=== PATIENT | female | born 1950 | race Caucasian/White ===

== ENCOUNTER 2020-03-08 09:18 | Emergency (ER) | payer SELFPAY ==
[2020-03-08 09:29] VITALS: BP 113/75; PULSE 88; RESP 16; TEMP 36.9; O2SAT 98
--- NOTE | 2020-03-08 09:57 | ED.URI ---
HPI - URI/Sore Throat General Chief Complaint: Upper Respiratory Infection Stated Complaint: Possible sinus infection Time Seen by Provider: 03/08/20 09:44 Source: patient and RN notes reviewed Mode of arrival: ambulatory Limitations: no limitations History of Present Illness HPI Narrative: Patient presents today complaining of right ear pain, postnasal drip, rhinorrhea, sinus pressure for the last couple of months. Her copious postnasal drip is leading to some nausea and she believes, diarrhea. She is also experiencing some mild dizziness that started several days ago. She has been occasionally using a nasal spray and benadryl every 1-2 hours without relief. Patient does not have a PCP. Related Data Allergies Allergy/AdvReac Type Severity Reaction Status Date / Time No Known Allergies Allergy Unknown Verified 03/08/20 09:51 Review of Systems Review of Systems: Narrative: CONSTITUTIONAL: Denies body aches, fever, chills, or sweats. EYES: Denies visual changes, redness, or discharge. ENT: Denies congestion, sore throat.+ Rhinorrhea, postnasal drip, sinus pressure CARDIOVASCULAR: Denies chest pain, palpitations, or edema. RESPIRATORY: Denies cough or dyspnea. GASTROINTESTINAL: Denies abdominal pain, vomiting. + Nausea, diarrhea GENITOURINARY: Denies dysuria or hematuria. SKIN: Denies rash, itching, or wounds. MUSCULOSKELETAL: Denies back pain, joint pain, or myalgia. NEUROLOGIC: Denies headache, numbness, tingling, or weakness.+ Dizziness PSYCH: Denies depression or anxiety. [facility] Past Medical History Medical History (Updated 03/08/20 @ 10:07 by No Pritchard, [facility], ) Cerebral palsy History of breast cancer History of uterine cancer Social History Social History Gender identity (if verbalized by the patient): Female Comments At time of signature, I have reviewed and agree with nursing past medical, surgical, social and family history unless otherwise noted. Please see nursing chart for further information. There is no relevant family history pertinent to the presenting complaint Exam Narrative: Exam Narrative: GENERAL: Well-appearing, well-nourished, and in no acute distress. HEAD: Normocephalic, atraumatic. EYES: EOMI. No redness or drainage. Conjunctivae normal. ENT: Mucous membranes pink and moist. Nares congested. Tenderness to maxillary sinuses bilaterally.. + Rhinorrhea. TMs normal bilaterally. Throat normal. + Copious white postnasal drainage. Uvula midline. NECK: Normal AROM. Supple. No lymphadenopathy. CHEST: No respiratory distress. Clear to auscultation. HEART: Regular rate and rhythm. No murmur appreciated. Normal peripheral pulses. EXTREMITIES: Normal range of motion. No edema. SKIN: Warm, dry, no rash. Capillary refill normal. Normal skin turgor. NEURO: No focal deficits. Alert and oriented x3. Ambulates with walker. Obvious limp. PSYCH: Normal affect. No signs of depression or anxiety. Course Course Emergency Course: I believe patient's dizziness may be due to her overuse of Benadryl. This was discussed at length. Vital Signs Vital signs: Vital Signs Temperature 98.5 F 03/08/20 09:29 Pulse Rate 88 03/08/20 09:29 Respiratory Rate 16 03/08/20 09:29 Blood Pressure 113/75 03/08/20 09:29 Pulse Oximetry 98 03/08/20 09:29 Temperature 98.5 F 03/08/20 09:29 Pulse Rate 88 03/08/20 09:29 Respiratory Rate 16 03/08/20 09:29 Blood Pressure 113/75 03/08/20 09:29 Pulse Oximetry 98 03/08/20 09:29 Reviewed MDM - URI/Sore Throat Differential Diagnosis Differential diagnosis: Likely upper respiratory infection, otitis media, sinusitis, viral infection, pharyngitis and other (Seasonal allergies, allergic rhinitis) Critical Care Time Critical Care Time Critical Care Time: No Discharge Plan Discharge Clinical Impression: Sinusitis Qualifiers: Sinusitis location: maxillary Chronicity: acute Recurrence: not specified as recurrent Qualified Code(s)
== END 2020-03-08 10:10 | disposition home or self-care (01) ==
PROVIDERS: Emergency Provider Nurse Practitioner
DX: J01.00 Acute maxillary sinusitis, unspecified (principal); G80.9 Cerebral palsy, unspecified; Z85.3 Personal history of malignant neoplasm of breast; Z85.42 Personal history of malignant neoplasm of other parts of uterus
CPT/HCPCS: 99213; G0463

== ENCOUNTER 2024-03-06 07:08 | Day surgery (SDC) | payer MEDICARE, SELFPAY ==
[2024-02-18 09:00] VITALS: BMI 21.1
[2024-02-28 14:08] VITALS: BMI 20.8
[2024-03-06 08:11] VITALS: BP 101/79; PULSE 90; RESP 20; TEMP 37.1; O2SAT 100; BMI 20.8
[2024-03-06] MEDS: LACTATED RINGERS 1,000 ML 150 ML IV CONT (08:23)
--- NOTE | 2024-03-06 08:39 | P.HP_ITS ---
History of Present Illness History of Present Illness Consent: Risks, benefits, and alternatives have been discussed and questions answered. Patient agrees to proceed with procedure. Chief complaint: Neoplasm screening Narrative: Syl Solares is a 73 year old female referred from nurse practitioner , [place], for screening colonoscopy. Patient had previous colonoscopy many years ago. She states it was unremarkable. These records are not available for re view. Currently complains of vague abdominal pain. Her weight appetite bowel movements are reported to be normal. Family history noncontributory. Patient presents today for screening colonoscopy. Has a past medical history of cerebral palsy. She has been treated for breast cancer and uterine cancer. Review of Systems Review of Systems: All systems reviewed & are unremarkable except as noted in HPI and below PMFSH Past Medical History Medical History (Updated 03/06/24 @ 08:41 by Cedric Mejia MD) Cerebral palsy History of breast cancer History of uterine cancer Social History Social History Smoking status: Never smoker Alcohol intake: never Substance use type: does not use Living arrangements: alone Gender identity (if verbalized by the patient): Female Spiritual care concerns: No Meds Home Medications and Allergies Home Medications Medication Instructions Recorded Confirmed Type Super Beets 1 tablet PO DAILY 02/28/24 03/06/24 History ascorbic acid (vitamin C) 500 mg 500 mg PO DAILY 02/28/24 03/06/24 History tablet calcium 600 mg capsule 600 mg PO DAILY 02/28/24 03/06/24 History cetirizine 10 mg tablet 10 mg PO DAILY 02/28/24 03/06/24 History famotidine 40 mg tablet 40 mg PO DAILY 02/28/24 03/06/24 History mecobalamin (vitamin B12) 5,000 5,000 mcg PO DAILY 02/28/24 03/06/24 History mcg chewable tablet potassium chloride 20 mEq 20 meq PO DAILY 02/28/24 03/06/24 History tablet,extended release Allergies Allergy/AdvReac Type Severity Reaction Status Date / Time latex Allergy Redness of Verified 03/06/24 08:02 Skin Penicillins Allergy Rash Verified 03/06/24 08:02 Vital Signs Vital Signs - 24 hr 03/06/24 08:11 Temperature 98.8 F Pulse Rate 90 Respiratory Rate 20 Blood Pressure 101/79 Pulse Oximetry 100 Oxygen Delivery Room Air Exam Narrative: Physical exam reveals patient to be hard of hearing his hearing aids. HEENT exam unremarkable. Lungs are clear to auscultation and percussion. Heart is without murmur or extra sounds. Abdomen bowel sounds are present soft nontender with no organomegaly. Digital external rectal exam normal. Assessment and Plan Assessment and plan (1) Encounter for screening colonoscopy: Code(s): Z12.11 - Encounter for screening for malignant neoplasm of colon Status: Acute Assessment and Plan: Patient referred for screening colonoscopy. Further recommendations may be given after endoscopy.
--- NOTE | 2024-03-06 08:42 | WPDANESEPPF ---
Anes - Initial Pre Proc Eval Procedure: Operation Date: 03/06/24 09:30 Proposed Procedures p Screening Colonoscopy - Cedric Mejia MD Date/Time: 03/06/24 08:42 Surgeon: Cedric Mejia MD Pre Op Diagnosis: Neoplasm screening Patient Data Age: 73 Gender: F Height: 1.55 m Weight: 50 kg Last Vital Signs Temp 37.1 C 03/06/24 08:11 Pulse 90 03/06/24 08:11 Resp 20 03/06/24 08:11 BP 101/79 03/06/24 08:11 Pulse Ox 100 03/06/24 08:11 O2 Del Method Room Air 03/06/24 08:11 Allergies Allergy/AdvReac Type Severity Reaction Status Date / Time latex Allergy Redness of Verified 03/06/24 08:02 Skin Penicillins Allergy Rash Verified 03/06/24 08:02 Home Medications Medication Instructions Recorded Confirmed Type Super Beets 1 tablet PO DAILY 02/28/24 03/06/24 History ascorbic acid (vitamin C) 500 mg 500 mg PO DAILY 02/28/24 03/06/24 History tablet calcium 600 mg capsule 600 mg PO DAILY 02/28/24 03/06/24 History cetirizine 10 mg tablet 10 mg PO DAILY 02/28/24 03/06/24 History famotidine 40 mg tablet 40 mg PO DAILY 02/28/24 03/06/24 History mecobalamin (vitamin B12) 5,000 5,000 mcg PO DAILY 02/28/24 03/06/24 History mcg chewable tablet potassium chloride 20 mEq 20 meq PO DAILY 02/28/24 03/06/24 History tablet,extended release Patient hx anesthesia problems: none Family hx anesthesia problems: none Results Review: All pre-operative results and documents have been reviewed as part of the pre-operative evaluation. [facility] Past Medical History Medical History Cerebral palsy History of breast cancer History of uterine cancer Surgical History Surgical History (Updated 03/06/24 @ 08:43 by Charli Starr MD) H/O lumpectomy History of appendectomy Social History Social History Smoking status: Never smoker Alcohol intake: never Substance use type: does not use Living arrangements: alone Gender identity (if verbalized by the patient): Female Spiritual care concerns: No Anes - Eval Final PreProcedure Day of Procedure 03/06/24 08:42 Patient weight: normal Heart: regular rate and rhythm Lungs: clear to auscultation Airway: Mallampati scale class II Neurological: alert and oriented Last oral intake: >/= 8 hours ASA classification: III Emergent: no Anesthetic plan: proceed Anesthesia type and monitoring: general GIVS and standard monitoring Results Review: All pre-operative results and documents have been reviewed as part of the pre-operative evaluation. Informed Consent: The patient's anesthetic plan and its attendant risks and benefits were discussed with the patient/family/POA. Questions were solicited and answers provided to the satisfaction of the patient/family/POA.
[2024-03-06 09:06] VITALS: BP 95/59; PULSE 75; RESP 14; O2SAT 99
[2024-03-06 09:16] VITALS: BP 93/61; PULSE 71; RESP 16; O2SAT 98
[2024-03-06 09:26] VITALS: BP 91/58; PULSE 66; RESP 18; O2SAT 99
--- NOTE | 2024-03-06 09:38 | WPDANESPN ---
Anes - Prog Note Post-Op Date/Time: 03/06/24 09:38 Cardiovascular status: normal Respiratory status: normal Airway patency: baseline Mental status: baseline Post-Op hydration status: normal Vital Signs: Last Vital Signs Temp 37.1 C 03/06/24 08:11 Pulse 66 03/06/24 09:26 Resp 18 03/06/24 09:26 BP 91/58 L 03/06/24 09:26 Pulse Ox 99 03/06/24 09:26 O2 Del Method Room Air 03/06/24 09:26 Pain Score (VAS): 0/10 I/O: Intake & Output 03/05/24 03/06/24 03/06/24 23:59 07:59 15:59 Intake Total 550 Balance 550 Patient Feedback: Patient satisfied with anesthetic care.
== END 2024-03-06 09:37 | disposition home or self-care (01) ==
PROVIDERS: PCP Nurse Practitioner Family; Visit Provider Internal Medicine Gastroenterology
PROC: 0DJD8ZZ Inspection of Lower Intestinal Tract, Via Natural or Artificial Opening Endoscopic (ICD-10-PCS; CPT 45378; principal; 2024-03-06 09:30)
DX: Z12.11 Encounter for screening for malignant neoplasm of colon (principal); K64.8 Other hemorrhoids
CPT/HCPCS: 45378

== ENCOUNTER 2024-04-30 10:27 | Emergency (ER) | payer MEDICARE, SELFPAY ==
--- NOTE | ~2024-04-30 | XR_ITS ---
EXAMINATION: XR finger 5th RT min 2V DATE: 04/30/2024 10:55 INDICATION: Right hand fifth digit pain. Fall. TECHNIQUE: 3 views of right hand fifth digit were obtained. COMPARISON: Right hand radiographs 02/19/2014 FINDINGS: Alignment is normal. No fracture. There is mild osteoarthritis of fifth metacarpophalangeal joint and moderate osteoarthritis of proximal and distal interphalangeal joints. IMPRESSION: 1. Polyarticular osteoarthritis. Reviewed, dictated and finalized at location A.
[2024-04-30 10:29] VITALS: BP 110/64; PULSE 80; RESP 20; TEMP 37.1; O2SAT 97
--- NOTE | 2024-04-30 10:48 | ED.GENADULT ---
HPI - General Adult General Chief complaint: Wound/Laceration Stated complaint: Right Hand Finger Laceration Source: patient Mode of arrival: ambulatory Limitations: no limitations History of Present Illness HPI narrative: Patient presents for evaluation of a laceration to the 5th digit of the right hand. Symptom onset 5 days ago. She fell in her bathroom at home and believes she cut the affected digit on a cabinet. She states pain is constant, sharp and rated between 5-8/10 in severity. Palpation of the affected area makes her symptoms worse. She has been cleaning it with alcohol and hydrogen peroxide. She is right hand dominant. Date of last tetanus unknown. Related Data Home Medications Medication Instructions Recorded Confirmed Super Beets 1 tablet PO DAILY 02/28/24 04/30/24 ascorbic acid (vitamin C) 500 mg 500 mg PO DAILY 02/28/24 04/30/24 tablet calcium 600 mg capsule 600 mg PO DAILY 02/28/24 04/30/24 cetirizine 10 mg tablet 10 mg PO DAILY 02/28/24 04/30/24 famotidine 40 mg tablet 40 mg PO DAILY 02/28/24 04/30/24 mecobalamin (vitamin B12) 5,000 5,000 mcg PO DAILY 02/28/24 04/30/24 mcg chewable tablet potassium chloride 20 mEq 20 meq PO DAILY 02/28/24 04/30/24 tablet,extended release Allergies Allergy/AdvReac Type Severity Reaction Status Date / Time latex Allergy Redness of Verified 04/30/24 10:31 Skin Penicillins Allergy Rash Verified 04/30/24 10:31 Review of Systems Review of Systems: CONSTITUTIONAL: Denies fever, chills, or sweats. EYES: Denies visual changes, redness, or discharge. ENT: Denies rhinorrhea, congestion, sore throat, or otalgia. CARDIOVASCULAR: Denies chest pain, palpitations, or edema. RESPIRATORY: Denies cough or dyspnea. GASTROINTESTINAL: Denies abdominal pain, nausea, vomiting, or diarrhea. GENITOURINARY: Denies dysuria or hematuria. SKIN: Reports laceration to the 5th digit of the right hand MUSCULOSKELETAL:Reports pain in distal phalanx of the 5th digit of the right hand NEUROLOGIC: Denies headache, numbness, dizziness, or weakness. PSYCHIATRIC: Denies anxiety or depression. COUNT INCLUDES THE [facility] Past Medical History Medical History Cerebral palsy History of breast cancer History of uterine cancer Surgical History Surgical History (Updated 03/06/24 @ 08:43 by Charli Starr MD) H/O lumpectomy History of appendectomy Family History Family History Mother Family history unknown Social History Social History Smoking status: Never smoker Alcohol intake: never Substance use type: does not use Living arrangements: alone Gender identity (if verbalized by the patient): Female Spiritual care concerns: No Exam Narrative: GENERAL: Well-appearing, well-nourished, and in no acute distress. HEAD: Normocephalic, atraumatic. EYES: PERRLA and EOMI. ENT: Nares clear, no rhinorrhea or epistaxis. Mucous membranes moist. Oropharynx without tonsillar hypertrophy exudate or other lesions. Bilateral TMs pearly kraus nonbulging NECK: Supple. No adenopathy or masses. No carotid bruits or JVD CHEST: Clear to auscultation. No respiratory distress. No wheezes rales or rhonchi HEART: Regular rate and rhythm. No murmur heard. Normal peripheral pulses. ABDOMEN: Soft, nontender, nondistended, normal active bowel sounds. EXTREMITIES: There is tenderness to distal phalanx of the fifth digit of right hand. Normal range of motion. No edema. SKIN: There is a 2cm linear laceration to the distal phalanx of 5th digit of right hand. Tissue bed is pink. No active drainage. NEURO: No focal deficits. Alert and oriented x3. PSYCH: Normal mood and affect. Course Course Emergency Course: This is a 74-year-old female who presented for evaluation of an injury to the 5th digit of the right hand.
[2024-04-30] MEDS: TETANUS,DIPHTHERIA,AC PERTUSSIS ADULT (0.5 ML) BOOSTRIX IM (11:01)
== END 2024-04-30 11:55 | disposition home or self-care (01) ==
PROVIDERS: Emergency Provider Nurse Practitioner; PCP Nurse Practitioner Family
DX: S61.216A Laceration without foreign body of right little finger without damage to nail, initial encounter (principal); S60.051A Contusion of right little finger without damage to nail, initial encounter; W19.XXXA Unspecified fall, initial encounter; Z23 Encounter for immunization; G80.9 Cerebral palsy, unspecified; Z85.3 Personal history of malignant neoplasm of breast; Z85.42 Personal history of malignant neoplasm of other parts of uterus
CPT/HCPCS: 73140; 90471; 90715; 99213; G0463

== ENCOUNTER 2024-05-23 09:40 | Outpatient (CLI) | payer MEDICARE, SELFPAY ==
[2024-05-23 18:26] LABS: Toxigenic C. Diff NEGATIVE (NEGATIVE)
== END 2024-05-23 09:41 | disposition home or self-care (01) ==
PROVIDERS: PCP Nurse Practitioner Family; Visit Provider Nurse Practitioner Family
DX: R19.7 Diarrhea, unspecified (principal)
CPT/HCPCS: 87493

== ENCOUNTER 2024-05-30 15:31 | Outpatient (CLI) | payer MEDICARE, SELFPAY ==
--- NOTE | ~2024-05-30 | CT_ITS ---
CLINICAL INDICATION: Unspecified abdominal pain. COMPARISON: None. TECHNIQUE: Computed tomography (CT) of the abdomen and pelvis was performed without intravenous contr ast. The dose-length product was 186.36 mGy-cm. FINDINGS/OBSERVATIONS: Visualized lower thorax:The bilateral lung bases are clear. The heart is of normal size, without pericardial effusion. Small hiatal hernia. Liver: The liver is not enlarged and demonstrates homogeneous attenuation. Gallbladder and biliary system: Linear calcifications along the costal margin, likely calcified stone s within a decompressed gallbladder Pancreas: Limited evaluation without intravenous contrast. Spleen: The spleen is not enlarged and demonstrates homogeneous attenuation Kidneys: The bilateral kidneys are unremarkable, without hydronephrosis or calcified stones Adrenal glands: Unremarkable Gastrointestinal tract: Fecal stasis within the colon without diverticulosis Appendix:The appendix is not definitively visualized. However, no pericecal inflammatory change is id entified suggest the presence of acute appendicitis. Vasculature: Calcified atherosclerotic disease Lymph nodes: No pathologically enlarged or morphologically suspicious lymph nodes within the retroper itoneum or at the root of the mesentery. Pelvic structures: The bladder is only minimally distended, but otherwise unremarkable. The uterus is either atrophic or surgically absent. Multiple phleboliths within the pelvis Body wall and musculoskeletal: Small fat-containing umbilical hernia is present. Only trace degenerative disease within the lower thoracic and lumbosacral spine. IMPRESSION: No acute intra-abdominal or intrapelvic pathology identified. Multiple nonacute findings, as detailed above. Reviewed, dictated and finalized at location A.
== END 2024-05-30 15:32 | disposition home or self-care (01) ==
LOC: ANHIMG 15:38
PROVIDERS: PCP Nurse Practitioner Family; Visit Provider Nurse Practitioner Family
DX: K82.8 Other specified diseases of gallbladder (principal); K59.89 Other specified functional intestinal disorders; I70.90 Unspecified atherosclerosis; I87.8 Other specified disorders of veins
CPT/HCPCS: 74176

== ENCOUNTER 2024-10-21 14:04 | Outpatient (CLI) | payer MEDICARE, SELFPAY ==
--- NOTE | ~2024-10-21 | MR_ITS ---
EXAMINATION: MR brain/brain stem wo/w con DATE: 10/21/2024 14:45 INDICATION: Headache. Neck pain. Neck mass. TECHNIQUE: Magnetic resonance imaging (MRI) of the brain and brainstem was performed without and with 10 mL ProHance intravenous contrast. COMPARISON: None. FINDINGS: There is no intracranial hemorrhage, acute infarction, or abnormal intracranial mass lesion . The ventricles are normal in size. The paranasal sinuses are clear. There are likely changes of ocu lar lens replacement surgeries. The mastoid air cells are normal. There is widening of the anterior a tlantoaxial joint to 7 mm. IMPRESSION: 1. Normal brain. 2. Atlantoaxial instability. Consider cervical spine CT. Reviewed, dictated and finalized at location B.
== END 2024-10-21 14:05 | disposition home or self-care (01) ==
LOC: MICIMG 14:06
PROVIDERS: PCP Nurse Practitioner Family; Visit Provider Nurse Practitioner Adult Health
DX: R22.1 Localized swelling, mass and lump, neck (principal)
CPT/HCPCS: 70553; A9579

== ENCOUNTER 2024-11-07 11:55 | Emergency (ER) | payer MEDICARE, SELFPAY ==
[2024-11-07 12:07] VITALS: BP 108/68; PULSE 72; RESP 19; TEMP 37.2; O2SAT 98
--- NOTE | 2024-11-07 12:24 | ED.FEMALEGU ---
HPI - Female Genitourinary General Chief complaint: Urogenital-Female Stated complaint: urinary issue Time Seen by Provider: 11/07/24 12:32 Source: patient and RN notes reviewed Mode of arrival: ambulatory Limitations: no limitations History of Present Illness HPI Narrative: 74-year-old female presents with for urine frequency, urgency, dysuria. Reports incontinence bladder spasms, bloating. She reports some nausea, denies vomiting, fever, chills, sweats. MD elicited complaint: UTI Related Data Home Medications ?Medication ?Instructions ?Recorded ?Confirmed ?Last Taken ?Type Super Beets 1 tablet PO DAILY 02/28/24 04/30/24 03/01/24 History ascorbic acid (vitamin C) 500 mg 500 mg PO DAILY 02/28/24 04/30/24 03/01/24 History tablet calcium 600 mg capsule 600 mg PO DAILY 02/28/24 04/30/24 03/01/24 History cetirizine 10 mg tablet 10 mg PO DAILY 02/28/24 04/30/24 03/06/24 History famotidine 40 mg tablet 40 mg PO DAILY 02/28/24 04/30/24 03/04/24 History mecobalamin (vitamin B12) 5,000 5,000 mcg PO DAILY 02/28/24 04/30/24 03/01/24 History mcg chewable tablet potassium chloride 20 mEq 20 meq PO DAILY 02/28/24 04/30/24 03/02/24 History tablet,extended release Allergies Allergy/AdvReac Type Severity Reaction Status Date / Time latex Allergy Redness of Verified 11/07/24 11:57 Skin Penicillins Allergy Rash Verified 11/07/24 11:57 Review of Systems Review of Systems: CONSTITUTIONAL: Denies malaise, chills, sweats, or fever. CARDIOVASCULAR: Denies chest pain, palpitations, or edema. RESPIRATORY: Denies cough or dyspnea. GASTROINTESTINAL: Denies abdominal pain, nausea, vomiting, diarrhea GENITOURINARY: Reports dysuria, frequency, urgency, suprapubic pressure. Denies flank pain or hematuria. SKIN: Denies rash or itching. MUSCULOSKELETAL: Denies back pain or myalgia. All systems reviewed & are unremarkable except as noted in HPI and below PMFSH Past Medical History Medical History Cerebral palsy History of breast cancer History of uterine cancer Surgical History Surgical History (Updated 03/06/24 @ 08:43 by Charli Starr MD) H/O lumpectomy History of appendectomy Family History Family History Mother Family history unknown Social History Social History Smoking status: Never smoker Alcohol intake: never Substance use type: does not use Living arrangements: alone Gender identity (if verbalized by the patient): Female Spiritual care concerns: No Comments At time of signature, agree with nursing past medical, surgical, social and family history. There is no relevant family history pertinent to the presenting complaint Exam Narrative: GENERAL: Well-appearing, well-nourished, and in no acute distress. HEAD: Normocephalic. EYES: PERRLA, conjunctivae clear. NECK: Supple. No lymphadenopathy CHEST: Clear to auscultation. No respiratory distress. HEART: Regular rate and rhythm. ABDOMEN: Soft, nontender upon palpation, nondistended, normal active bowel sounds, no palpable or pulsatile masses, no guarding. No CVA tenderness SKIN: Warm, dry, no rash. NEURO: Alert and oriented x3. PSYCH: Normal mood and affect Course Course Emergency Course: Patient is aware of diagnosis, understands and agrees to treatment plan. Anticipatory guidance given. Patient agrees to follow-up as directed and is aware of reasons to seek care at the emergency department. Portions of this record may have been created with voice recognition software Level of Care: Express Care Visit Vital Signs Vital signs: Vital Signs Temperature 98.9 F 11/07/24 12:07 Pulse Rate 72 11/07/24 12:07 Respiratory Rate 19 11/07/24 12:07 Blood Pressure 108/68 11/07/24 12:07 Pulse Oximetry 98 11/07/24 12:07 Oxygen Delivery Room Air 11/07/24 12:07 Temperature 98.9 F 11/07/24 12:07 Pulse Rate 72 11/07/24 12:07 Respiratory Rate 19 11/07/24 12:07 Blood Pressure 108/68 11/07/24 12:07 Pulse Oximetry 98 11/07/24 12:07 Oxygen Delivery Room Air 11/07/24 12:07 Reviewed. MDM - Female Genitourinary MDM Narrative Medical decision making narrative: Exam findings and UA show no acute concerns or changes; patient is non-toxic appearing and is in no distress. Patient is appropriate for outpatient treatment and follow-up. Differential Diagnosis Differential diagnosis: Likely urinary tract infection and cystitis Critical Care Time Critical Care Time Critical Care Time: No Discharge Plan Discharge Clinical Impression: Urinary tract infection Patient Disposition: Home, Self-Care Condition: Stable Instructions: Antibiotic Form, Urinary Tract Infection in Older Adults (ED) Additional Instructions: We will send a urine culture to the lab; if the culture identifies an organism that the prescribed antibiotic will not treat, you will receive a phone call from an urgent care staff member and an appropriate antibiotic will be prescribed. -Your symptoms should begin to improve within a day of starting antibiotics. But you should finish all the antibiotic pills you get. Otherwise your infection might come back. -Also recommend: increase water intake. Tylenol/ibuprofen as needed for pain or fever -Follow-up with your primary care provider for urine recheck or seek ER visit if condition worsens with high fever, nausea, vomiting and severe back pain. Patient Language: Turkmen Prescriptions: New ciprofloxacin HCl 500 mg tablet 500 mg PO Q12H 7 Days Qty: 14 0RF No Action cetirizine 10 mg Tablet 10 mg PO DAILY famotidine 40 mg tablet 40 mg PO DAILY calcium 600 mg Capsule 600 mg PO DAILY ascorbic acid (vitamin C) 500 mg Tablet 500 mg PO DAILY potassium chloride 20 mEq Tablet Extended Release 20 meq PO DAILY mecobalamin (vitamin B12) 5,000 mcg Tablet,Chewable 5,000 mcg PO DAILY Super Beets 1 tablet PO DAILY Follow-up/Referrals: Julia,Teresa Costa [facility] [Primary Care Provider] - Time of Disposition: 12:31
[2024-11-07 12:26] LABS: EDUAAPPEAR Clear; EDUABILI 1+ (Negative); EDUABLOOD Trace (Negative); EDUACOLOR1 Yellow; EDUAGLUCOSE Negative (Negative); EDUAKETONE Trace (Negative); EDUALEUKO 1+ (Negative); EDUANITRATE Negative (Negative); EDUAPH 5.5; EDUAPROTEIN 1+ (Negative); EDUAUROBILI 0.2
== END 2024-11-07 12:40 | disposition home or self-care (01) ==
PROVIDERS: Emergency Provider Nurse Practitioner; PCP Nurse Practitioner Family
DX: N39.0 Urinary tract infection, site not specified (principal); B96.20 Unspecified Escherichia coli [E. coli] as the cause of diseases classified elsewhere; G80.9 Cerebral palsy, unspecified; Z85.3 Personal history of malignant neoplasm of breast; Z85.42 Personal history of malignant neoplasm of other parts of uterus
CPT/HCPCS: 81003; 87086; 87186; 99213; G0463

== ENCOUNTER 2025-02-13 09:12 | Emergency (ER) | payer MEDICARE, SELFPAY ==
[2025-02-13 09:24] VITALS: BP 131/72; PULSE 73; RESP 18; TEMP 37.1; O2SAT 99
--- NOTE | 2025-02-13 09:38 | ED.GENADULT ---
HPI - General Adult General Chief complaint: Upper Respiratory Infection Stated complaint: Cough/Sinus/Diarrhea Source: patient Mode of arrival: ambulatory Limitations: no limitations History of Present Illness HPI narrative: Patient presents for evaluation of sick symptoms. Symptom onset 4 days ago. She reports chills, headache, runny nose, productive cough with green sputum and diarrhea. No fever, nausea, vomiting. the only recent sick contact was about 2 weeks ago when she was exposed to someone that had GI symptoms. She is taking an [id number] cough medication. She does not smoke. She also tried motrin. Related Data Home Medications ?Medication ?Instructions ?Recorded ?Confirmed ?Last Taken ?Type Super Beets 1 tablet PO DAILY 02/28/24 04/30/24 03/01/24 History ascorbic acid (vitamin C) 500 mg 500 mg PO DAILY 02/28/24 04/30/24 03/01/24 History tablet calcium 600 mg capsule 600 mg PO DAILY 02/28/24 04/30/24 03/01/24 History cetirizine 10 mg tablet 10 mg PO DAILY 02/28/24 04/30/24 03/06/24 History famotidine 40 mg tablet 40 mg PO DAILY 02/28/24 04/30/24 03/04/24 History mecobalamin (vitamin B12) 5,000 5,000 mcg PO DAILY 02/28/24 04/30/24 03/01/24 History mcg chewable tablet potassium chloride 20 mEq 20 meq PO DAILY 02/28/24 04/30/24 03/02/24 History tablet,extended release Allergies Allergy/AdvReac Type Severity Reaction Status Date / Time latex Allergy Redness of Verified 02/13/25 09:17 Skin Penicillins Allergy Rash Verified 02/13/25 09:17 Review of Systems Review of Systems: CONSTITUTIONAL: Reports chills. Denies fever or sweats. EYES: Denies visual changes, redness, or discharge. ENT: reports runny nose. Denies congestion, sore throat, or otalgia. CARDIOVASCULAR: Denies chest pain, palpitations, or edema. RESPIRATORY: Report cough. Denies SOB GASTROINTESTINAL: Reports diarrhea/ Denies abdominal pain, nausea, or vomiting GENITOURINARY: Denies dysuria or hematuria. SKIN: Denies rash or itching. MUSCULOSKELETAL: Denies back pain, joint pain, or myalgia. NEUROLOGIC: Reports headache. Denies dizziness, or weakness. PSYCHIATRIC: Denies anxiety or depression. [facility] Past Medical History Medical History Cerebral palsy History of uterine cancer History of breast cancer Surgical History Surgical History H/O lumpectomy History of appendectomy Family History Family History Mother Family history unknown Social History Social History Smoking status: Never smoker Alcohol intake: never Substance use type: does not use Living arrangements: alone Gender identity (if verbalized by the patient): Female Spiritual care concerns: No Exam Narrative: GENERAL: Well-appearing, well-nourished, and in no acute distress. HEAD: Normocephalic, atraumatic. EYES: PERRLA and EOMI. ENT: Nares clear, no rhinorrhea or epistaxis. Mucous membranes moist. Oropharynx without tonsillar hypertrophy exudate or other lesions. Bilateral TMs pearly kraus nonbulging NECK: Supple. No adenopathy or masses. No carotid bruits or JVD CHEST: Clear to auscultation. No respiratory distress. No wheezes rales or rhonchi HEART: Regular rate and rhythm. No murmur heard. Normal peripheral pulses. ABDOMEN: Soft, nontender, nondistended, normal active bowel sounds. EXTREMITIES: Normal range of motion. No edema. SKIN: Warm, dry, no rash. NEURO: No focal deficits. Alert and oriented x3. PSYCH: Normal mood and affect. Course Course Emergency Course: This is a 74-year-old female who presented for evaluation of sick symptoms. COVID and influenza were negative. Exam is consistent with acute viral syndrome. Increase hydration. Ioho-rfe-javffyl agents for symptom management. Follow up with primary provider. Go to the ER for worsening symptoms. Patient in agreement with plan of care. Level of Care: Express Care Visit Vital Signs Vital signs: Vital Signs Temperature 37.1 C 02/13/25 09:24 Pulse Rate 73 02/13/25 09:24 Respiratory Rate 18 02/13/25 09:24 Blood Pressure 131/72 02/13/25 09:24 Pulse Oximetry 99 02/13/25 09:24 Oxygen Delivery Room Air 02/13/25 09:24 Temperature 37.1 C 02/13/25 09:24 Pulse Rate 73 02/13/25 09:24 Respiratory Rate 18 02/13/25 09:24 Blood Pressure 131/72 02/13/25 09:24 Pulse Oximetry 99 02/13/25 09:24 Oxygen Delivery Room Air 02/13/25 09:24 Medical Decision Making Vital Signs Vital Signs: Vital Signs Temperature 37.1 C 02/13/25 09:24 Pulse Rate 73 02/13/25 09:24 Respiratory Rate 18 02/13/25 09:24 Blood Pressure 131/72 02/13/25 09:24 Pulse Oximetry 99 02/13/25 09:24 Oxygen Delivery Room Air 02/13/25 09:24 Temperature 37.1 C 02/13/25 09:24 Pulse Rate 73 02/13/25 09:24 Respiratory Rate 18 02/13/25 09:24 Blood Pressure 131/72 02/13/25 09:24 Pulse Oximetry 99 02/13/25 09:24 Oxygen Delivery Room Air 02/13/25 09:24 Lab Data Labs: Lab Results 02/13/25 Range/Units 09:59 POC Influenza A Ag Negative (Negative) POC Influenza B Ag Negative (Negative) POC SARS CoV-2 Ag Negative (Negative) Discharge Plan Discharge Clinical Impression: Upper respiratory infection, viral Patient Disposition: Home Condition: Stable Instructions: Antibiotic Form, Upper Respiratory Infection (ED), Viral Syndrome (ED) Additional Instructions: Please increase water intake Dextromethorphan(Delsym) should help with cough Imodium should help with diarrhea Patient Language: [place] Prescriptions: No Action cetirizine 10 mg Tablet 10 mg PO DAILY famotidine 40 mg tablet 40 mg PO DAILY calcium 600 mg Capsule 600 mg PO DAILY ascorbic acid (vitamin C) 500 mg Tablet 500 mg PO DAILY potassium chloride 20 mEq Tablet Extended Release 20 meq PO DAILY mecobalamin (vitamin B12) 5,000 mcg Tablet,Chewable 5,000 mcg PO DAILY Super Beets 1 tablet PO DAILY Follow-up/Referrals: Jordon Law MD [Physician] - Time of Disposition: 10:00
[2025-02-13 10:02] LABS: EDCOVIDSCREEN Negative (Negative); EDINFLUASCREEN Negative (Negative); EDINFLUBSCREEN Negative (Negative)
== END 2025-02-13 10:13 | disposition home or self-care (01) ==
PROVIDERS: Emergency Provider Nurse Practitioner
DX: J06.9 Acute upper respiratory infection, unspecified (principal); Z20.822 Contact with and (suspected) exposure to COVID-19; G80.9 Cerebral palsy, unspecified; Z85.3 Personal history of malignant neoplasm of breast; Z85.51 Personal history of malignant neoplasm of bladder
CPT/HCPCS: 87426; 87804; 99212; G0463

== ENCOUNTER 2025-05-11 10:58 | Outpatient (CLI) | payer MEDICARE, SELFPAY ==
--- NOTE | ~2025-05-11 | DEXA_ITS ---
Bone Density Report Name: SOLO HUGO Age: 75 Sex: Female Ethnicity: White Date of : 1950 Indication: postmenopausal; screening for osteoporosis; cancer; hysterectomy; Referring Provider: DAYSI MONTELONGO Study: Bone densitometry was performed. Exam Date: May 11, 2025 Accession number: [id number] Bone Density: Region BMD T-score Z-score Classification AP Spine(L1-L4) 0.690 -3.2 -1.0 Osteoporosis Femoral Neck (Left) 0.607 -2.2 -0.2 Osteopenia Total Hip (Left) 0.613 -2.7 -1.0 Osteoporosis Femoral Neck (Right) 0.519 -3.0 -1.0 Osteoporosis Total Hip (Right) 0.594 -2.9 -1.2 Osteoporosis Total Hip Mean 0.603 -2.8 -1.1 Osteoporosis World Health Organization criteria for BMD impression classify patients as: Normal (T-score at or above -1.0), Osteopenia (T-score between -1.0 and -2.5), or Osteoporosis (T-score at or below -2.5). 10-year Fracture Risk: FRAX not reported because: Some T-score for Spine Total or Hip Total or Femoral Neck at or below -2.5 Clinical Information Provided by Patient: Has the following medical conditions: Cancer, Hysterectomy, uterine/breast CA Patient maximum height was 62.0 Menopause Age: 32 No regular weight bearing exercise Drinks caffeinated beverages Onset of menses at age 21 Number of children 2 Impression: The patient has osteoporosis, based on the Total Spine T-score. Discussion: INCREASED RISK OF FRACTURE. BONE DENSITY IS UNDESIRABLY LOW AT ONE OR MORE SKELETAL SITES, CONSISTENT WITH POSTMENOPAUSAL OSTEOPOROSIS. This patient's lowest T-score meets the World Health Organization's (WHO) criteria for osteoporosis at one or more sites (T-score -2.5 or below). In untreated patients, the risk of osteoporotic fracture increases approximately two-fold for each 1.0 SD decrease in T-score. Low bone density is not the only risk factor for fracture; also consider factors such as patient's age, frailty or poor health, risk of falling, risk of injury, previous osteoporotic fracture, family history of osteoporosis, cigarette smoking, low body weight, etc. Not everyone with low bone mineral density has osteoporosis; osteomalacia and other metabolic bone disorders should also be considered. Patients who have osteoporosis should be evaluated for specific diseases and conditions (secondary causes) that may cause or contribute to bone loss. The [place] Association of Clinical Endocrinologists (AACE) and National Osteoporosis Foundation (NOF) recommend pharmacologic intervention for all postmenopausal women whose T-score is in this range. The patient should follow a healthful lifestyle (good nutrition with adequate calcium and vitamin D, and appropriate weight-bearing exercise). Follow-Up: Consider a repeat BMD and Vertebral Fracture Assessment (VFA) exam in 2 years or sooner if medically necessary, to reassess this patient's status. Reported by: JOHNNY on 05/11/2025 11:41:00 AM. Reviewed, dictated and finalized at location A.
--- OUTSIDE RECORDS SUMMARY | 2025-05-11 11:41 | XMS_ITS | Clinical Summary ---
Author Organization [facility] Address [address] [place] [address] Care Team Providers Care Telegraph Lineman Name Role Phone Teresa Sharp Primary Care Provider [phone] Allergies Active Allergy Reactions Criticality Noted Date Comments Penicillins Unknown 11/27/2023 Medications albuterol sulfate HFA 108 (90 Base) MCG/ACT inhaler Inhale 2 puffs into the lungs every 6 (six) hours as needed for Wheezing. Active cetirizine (ZYRTEC) 10 MG tablet Take 1 tablet (10 mg total) by mouth daily. 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 Legal Sex Female 8:02 PM CDT Gender Identity Not on file Sexual Orientation Not on file Last Filed Vital Signs Vital Sign Reading Time Taken Comments Blood Pressure 124/66 12/03/2023 11:00 AM CDT Pulse 59 12/03/2023 11:00 AM CDT Temperature 36.6 C (97.9 F) 12/03/2023 8:09 AM CDT Respiratory Rate 16 12/03/2023 8:09 AM CDT Oxygen Saturation 98% 12/03/2023 11:00 AM CDT Inhaled Oxygen Concentration - - Weight 49.9 kg (110 lb) 11/27/2023 2:03 PM CDT Height 154.9 cm (5' 1) 11/27/2023 2:03 PM CDT Body Mass Index 20.78 11/27/2023 2:03 PM CDT Plan of Treatment Health Maintenance Due Date Last Done Comments Colorectal Cancer Screening Colonoscopy (10 Years) 1952 Hepatitis C 1970 DTaP, Tdap and Td Vaccines (1 - Tdap) 1971 Mammogram Screening 1992 Annual Medicare Wellness Visit 2017 Dexa Scan (General) 2017 Zoster Vaccines (2 of 2) 11/13/2023 09/18/2023 COVID-19 Vaccine ( season) 2025 07/06/2023, 01/04/2022, 07/13/2021, Additional history exists Pneumococcal Vaccine: 50+ Years Completed 06/13/2022 RSV Immunization or 60+ Years Completed 09/18/2023 Meningococcal B Vaccine Aged Out No l onger eligible based on patient's age to complete this topic Meningococcal Vaccine Aged Out No janae sandro eligible based on patient's age to complete this topic RSV Immunizations Under 20 Months Aged Out No longer eligible based on patient's age to complete this topic Medical Devices Implanted Type Area Care Provider Device Identifier Shelf Expiration Date Model / Serial / Lot Tecnis 1-Piece Iol Implanted:Qty: 1 on 12/03/2023 by Eze Pandey MD at [facility] Right: Eye [employer] [id number] 11/03/2025 [id number] / [id number] / Insurance [facility] Care Teams Telegraph Lineman Relationship Specialty Start Date End Date Teresa Sharp FNP [address] [place] [address] PCP - General NURSE PRACTITIONER 08/01/24
--- OUTSIDE RECORDS SUMMARY | 2025-05-11 11:41 | XMS_ITS | Clinical Summary ---
Author Organization [facility] Address [address] [place] [id number] Care Team Providers Care Professional Fee Coder Name Role Phone Humaira Madrid NP Primary Care Provider [phone] Allergies Active Allergy Reactions Criticality Noted Date Comments Latex Rash Medium 02/13/2025 Penicillins Rash Medium 11/15/2023 Medications albuterol HFA (PROVENTIL HFA,VENTOLIN HFA,PROAIR HFA) 90 mcg/actuation inhaler Inhale 2 puffs every 6 (six) hours as needed for wheezing Active guaiFENesin ER (MUCINEX) 600 mg 12 hr tablet Take 2 tablets (1,200 mg total) by mouth 2 (two) times a day Active cyanocobalamin (Vitamin B-12) 1,000 mcg tabletIndication s:Prevention of Vitamin B12 Deficiency Take 1 tablet (1,000 mcg total) by mouth daily Active calcium carb-D3-mag ox-zinc ox 333 mg-133 unit -133 mg-5 mg tablet Take 1 tablet by mouth daily Active calcium carbonate-vitami n D3 1,500 mg (600mg elemental) -800 unit per tablet Take 1 tablet by mouth daily Active cetirizine (ZyrTEC) 10 mg tabletIndication s:Seasonal Allergic Rhinitis Take 1 tablet (10 mg total) by mouth daily Active famotidine (PEPCID) 40 mg tabletIndication s:Gastroesophage al reflux disease, unspecified whether esophagitis present Take 1 tablet (40 mg total) by mouth daily 30 tablet 4 Active UNABLE TO FIND Iberogast Activ e famotidine (PEPCID) 40 mg tablet Take 1 tablet (40 mg total) by mouth daily 30 tablet 11 5 10/22/[address] (PROTONIX) 20 mg EC tabletIndication s:Laryngopharyng eal reflux (LPR) Take 1 tablet (20 mg total) by mouth daily 30 tablet 3 5 Active Active Problems Problem Noted Date Diagnosed Date Pharyngoesophageal dysphagia 05/06/2025 Assessment & Plan (05/06/2025 9:53 AM CDT): Continue Pepcid 40 mg at bedtime Esophagram Consider referral to speech therapy based on these results, send to [place] if needed Laryngopharyngeal reflux (LPR) 04/24/2025 Assessment & Plan (05/06/2025 9:53 AM CDT): Continue Pepcid 40 mg at bedtime Esophagram Consider referral to speech therapy based on these results Hoarseness 04/24/2025 Assessment & Plan (04/24/2025 10:59 AM CDT): This has been intermittently persistent for years I will refer her to ENT and they can assess for laryngoscopy Chronic cough 02/18/2024 Assessment & Plan (04/24/2025 10:56 AM CDT): She had a normal spirometry test Her methacholine challenge testing was negative which makes asthma as an etiology for her coughing highly unlikely Her cough remains suspicious for VCD or GI etiology I will start her on PPI along with famotidine. Assessment & Plan (10/21/2024 11:59 AM CDT): Normal spirometry Her methacholine challenge testing was negative which makes asthma as an etiology for her coughing highly unlikely Her cough remains suspicious for VCD or GI etiology If this persists at her next office visit despite PPI therapy consider ENT referral, further workup from GI, and echocardiogram Assessment & Plan (04/23/2024 7:39 PM CDT): Normal spirometry Check methacholine challenge to evaluate for asthma/RAD Her cough is suspicious for VCD or GI etiology Assessment & Plan (02/18/2024 3:37 PM CDT): CT chest with no acute parenchymal disease noted Check pulmonary function testing Gastroesophageal reflux disease 02/18/2024 Assessment & Plan (04/24/2025 10:58 AM CDT): Restart famotidine 40 mg daily, although she may require PPI therapy Start pantoprazole 20 mg daily in the morning. Avoid trigger foods Avoid eating 2-3 hours before bed Elevate head of bed while sleeping Avoid tight clothing Assessment & Plan (10/21/2024 11:59 AM CDT): Restart famotidine 40 mg daily, although she may require PPI therapy Avoid trigger foods Avoid eating 2-3 hours before bed Elevate head of bed while sleeping Avoid tight clothing Keep follow-up appointment with Gastroenterology Assessment & Plan (04/23/2024 7:39 PM CDT): Continue famotidine 40 mg daily Avoid trigger foods Avoid eating 2-3 hours before bed Elevate head of bed while sleeping Avoid tight clothing Keep follow-up appointment with Gastroenterology Assessment & Plan (02/18/2024 3:37 PM CDT): Start famotidine 40 mg daily Avoid trigger foods Avoid eating 2-3 hours before bed Elevate head of bed while sleeping Avoid tight clothing Keep follow-up appointment with Gastroenterology Non-seasonal allergic rhinitis 02/18/2024 Assessment & Plan (10/21/2024 12:00 PM CDT): Chronic and persistent Continue daily cetirizine and saline nasal rinses May need further evaluation by ENT Assessment & Plan (04/23/2024 7:39 PM CDT): Chronic and persistent I have suggested daily cetirizine and saline nasal rinses May need further evaluation by ENT Assessment & Plan (02/18/2024 3:38 PM CDT): Chronic and persistent I have suggested daily cetirizine and saline nasal rinses Encounters Date Type Department Care Team Description 05/06/2025 9:30 AM CDT Office Visit [facility] - [address] [place] [phone] Miladis Luna DO Pharyngoesophageal dysphagia (Primary Dx); Laryngopharyngeal reflux (LPR) 04/24/2025 9:00 AM CDT Office Visit [facility] at [address] [place] [phone] Shruti Driver NP Laryngopharyngeal reflux (LPR) (Primary Dx); Hoarseness; Gastroesophageal reflux disease without esophagitis; Chronic cough from Last 3 Months Medical History Medical History Date Comments GERD (gastroesophageal reflux disease) Family History Medical History Relation Name Comments Emphysema Brother 1 Heart disease Brother 1 Hypertension Brother 1 Lung disease Brother 1 Stroke Brother 1 Heart disease Brother 2 Hypertension Brother 2 Stroke Brother 2 Heart disease Brother 3 Hypertension Brother 3 Stroke Brother 3 Heart disease Brother 4 Hypertension Brother 4 Stroke Brother 4 Heart disease Brother 5 Hypertension Brother 5 Stroke Brother 5 Heart disease Father Hypertension Father Stroke Father Cancer Mother Cancer Sister Clotting disorder Sister Diabetes Sister Relation Name Status Comments Brother 1 Brother 2 Brother 3 Brother 4 Alive Brother 5 Alive Father Mother Sister Social History Tobacco Use Types Packs/Day Years Used Date Smoking Tobacco: Never Tobacco Cessation:Counseling Given: Not Answered AUDIT-C Answer Date Recorded Frequency of Alcohol Consumption Not on file 04/24/2025 Q2: How many drinks containi ng alcohol do you have on a typical day when you are drinking? 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 Gender Identity Not on file Sexual Orientation Not on file Obstetrics History Last Filed Vital Signs Vital Sign Reading Time Taken Comments Blood Pressure 115/68 04/24/2025 8:57 AM CDT Pulse 63 04/24/2025 8:57 AM CDT Temperature 37.1 C (98.7 F) 04/24/2025 8:57 AM CDT Respiratory Rate 16 04/24/2025 8:57 AM CDT Oxygen Saturation 97% 04/24/2025 8:57 AM CDT Inhaled Oxygen Concentration - - Weight 52.2 kg (115 lb 1.6 oz) 04/24/2025 8:57 A M CDT Height 154.9 cm (5' 1) 04/24/2025 8:57 AM CDT Body Mass Index 21.75 04/24/2025 8:57 AM CDT Plan of Treatment Health Maintenance Due Date Last Done Comments Breast Cancer Screening-Mammogram 1950 Colon Cancer Screening-Colonoscopy 1950 Depression Screening 1952 Fall Risk Assessment 1950 Hepatitis C Screening 1950 Osteoporosis Screening-Bone Density Scan 1950 Hepatitis B Screening 1970 Well Visit 65+ 2017 Zoster Vaccine (2 of 2) 11/13/2023 09/18/2023 Covid-19 Vaccine (6 - 2024-2 6 season) 2025 07/06/2023, 01/04/2022, 07/13/2021, Additional history exists Influenza Vaccine (#1) 2025 05/30/2023 DTaP/Tdap/Td Vaccine (2 - Td or Tdap) 04/30/2034 04/30/2024 Pneumococcal vaccine 65+ Completed 06/13/[address] [id number] [facility] MEDICARE ADVANTAGE [facility] Address: [facility] [address] [place] [address] * Guarantor: Syl Solares Account Type Relation to Patient Date of Phone Billing Address Personal/Family Self [address] [place] [phone] Care Teams Professional Fee Coder Relationship Specialty Start Date [place] [address] [place] [address] PCP - General Family Practice 05/06/25
--- OUTSIDE RECORDS SUMMARY | 2025-05-11 11:41 | XMS_ITS | Clinical Summary ---
Author Organization [facility] Address [address] [place] [address] Care Team Providers Care Typesetting Machine Tender Name Role Phone Unavailable Primary Care Provider Unavailabl e Social History Tobacco Use Types Packs/Day Years Used Date Smoking Tobacco: Never Assessed Comments Unknown Sex and Gender Information Value Date Recorded Sex Assigned at Not on file Legal Sex Female 12:31 PM CDT Gender Identity Not on file Sexual Orientation Not on file Plan of Treatment Health Maintenance Due Date Last Done Comments Hepatitis C Virus (HCV) Screening 1950 TdaP Immunization 1950 Cologuard 1997 Colonoscopy 1997 Colorectal Cancer Screening 1997 Immunochemical Fecal Occult Blood 1997 Pneumococcal Immunization (5 0+ years) (1 of 1 - PCV) 2002 Zoster Immunization (1 of 2) 2002 SARS-COV-2 Immunization (2 - season) 2024 09/19/2020 Influenza Immunization (#1) 2025 Respiratory Syncytial Virus (RSV) Immunization (Adult) (1 - 1-dose 75+ series) 2027 Hepatitis B Immunization Aged Out No longer eligible based on patient's age to complete this topic Human Papillomavirus (HPV) Immunization Aged Out No longer eligible b ased on patient's age to complete this topic Meningococcal Immunization (ACWY) Aged Out No longer eligible based on patient's age to complete this topic Rotavirus Immunization Aged Out No lo nger eligible based on patient's age to complete this topic
--- OUTSIDE RECORDS SUMMARY | 2025-05-11 11:41 | XMS_ITS | Patient Health Record ---
Author Organization [facility] Address [address] [place], [place] [id number] Care Team Providers Care Pattern Developer Name Role Phone KATHRIN DUNN Unavailable [phone] Reason For Referral No Information Medications Medication SIG (Take, Route, Frequency, Duration) Notes Start Date End Date Status Medrol Dosepak ORAL Medrol DosepakOr iginal MedicationMedrol Dosepak *Reorder from [facility] for eRx and Interaction Alerts* 08/27/2020 Active Plan Of Treatment No Information
== END 2025-05-11 10:59 | disposition home or self-care (01) ==
LOC: ANHFOHIMG 10:59
PROVIDERS: PCP Nurse Practitioner Family; Visit Provider Nurse Practitioner Family
DX: M85.852 Other specified disorders of bone density and structure, left thigh (principal); Z78.0 Asymptomatic menopausal state; M81.0 Age-related osteoporosis without current pathological fracture; Z12.31 Encounter for screening mammogram for malignant neoplasm of breast; Z85.3 Personal history of malignant neoplasm of breast; Z12.11 Encounter for screening for malignant neoplasm of colon
CPT/HCPCS: 77080

== ENCOUNTER 2025-07-02 12:36 | Outpatient (CLI) | payer MEDICARE, SELFPAY ==
--- NOTE | ~2025-07-02 | US_ITS ---
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 Findings: Correlating with the palpable area there is no abnormal mass or mass effect. There is no increased flow. IMPRESSION: Unremarkable exam Reviewed, dictated and finalized at location P. PROTECTION ENGINEER IMPRESSION: Unremarkable exam
== END 2025-07-02 12:37 | disposition home or self-care (01) ==
PROVIDERS: PCP Nurse Practitioner Family; Visit Provider Nurse Practitioner Family
DX: M54.2 Cervicalgia (principal)
CPT/HCPCS: 76536